=== PATIENT | male | born 1965 | race Caucasian/White ===

== ENCOUNTER 2016-07-24 08:38 | Outpatient (CLI) | payer OTHER ==
[2016-07-24 08:31] LABS: BILIRUBIN,URINE NEGATIVE (NEGATIVE); BLOOD, URINE NEGATIVE (NEGATIVE); COLOR,URINE YELLOW (YELLOW); GLUCOSE,URINE NEGATIVE (NEGATIVE); KETONES,URINE NEGATIVE (NEGATIVE); LEUKOCYTE ESTERASE ,URINE NEGATIVE (NEGATIVE); NITRITE, URINE NEGATIVE (NEGATIVE); PROTEIN URINE NEGATIVE (NEGATIVE); UROBILINOGEN,URINE 0.2 (0.2-1.0)
[2016-07-24 08:33] LABS: CLARITY/URINE CLEAR (CLEAR)
[~2016-07-24 08:38] MED LIST: LEVO137T18 PO; ROSU10TA
[2016-07-24 08:42] LABS: BASOPHILS % (AUTO) 0.7 % (0.0-2.0); EOSINOPHILS # (AUTO) 0.3 K/uL (0.0-0.4); HEMOGLOBIN 15.8 g/dL (14.0-18.0); LYMPHOCYTES # (AUTO) 1.7 K/uL (1.0-5.5); LYMPHOCYTES % (AUTO) 30.9 % (20.5-51.5); MEAN CORPUSCULAR HEMOGLOBIN 30 pg (27-31); MEAN CORPUSCULAR HGB CONC 32 % (32-36); MEAN CORPUSCULAR VOLUME 92 fL (79.0-98.0); MONOCYTES # (AUTO) 0.5 K/uL (0.0-1.0); MONOCYTES % (AUTO) 9.2 % (1.7-9.3); NEUTROPHILS # (AUTO) 2.9 K/uL (1.8-7.7); NEUTROPHILS % (AUTO) 53.2 % (40.0-70.0); RED BLOOD CELL COUNT(AUTO) 5.34 MIL/uL (4.2-6.2); RED CELL DISTRIBUTION WIDTH 13.3 % (9.0-15.0); WHITE BLOOD COUNT (AUTO) 5.4 K/uL (4.8-10.8)
[2016-07-24 09:01] LABS: CALCIUM 8.9 mg/dL (8.4-11.0); CREATININE 1.19 mg/dL (0.55-1.30); FREE T4 (FREE THYROXINE) 0.7 ng/dL (0.6-1.6); POTASSIUM 4.3 mmol/L (3.5-5.1); THYROID STIMULATING HORMONE 1.39 uIu/mL (0.34-4.82); TOTAL BILIRUBIN 1.3 mg/dL (0.0-1.0); TOTAL PROTEIN, SERUM 7.3 g/dL (6.4-8.3)
[2016-07-24 09:18] LABS: PLATELET COUNT (AUTO) 80 K/uL (130-430)
== END 2016-07-24 18:20 | disposition home or self-care (01) ==
LOC: SLB 08:38
PROVIDERS: ATTEND Family Medicine
DX: Z12.11 Encounter for screening for malignant neoplasm of colon (principal); Z83.3 Family history of diabetes mellitus
CPT/HCPCS: 36415; 80053; 80061; 81003; 82272; 83036; 84439; 84443-TC; 85025

== ENCOUNTER 2016-08-26 08:00 | Outpatient (CLI) | payer OTHER | END 2016-08-26 20:20 | disposition home or self-care (01) | LOC: SUS 08:00 | PROVIDERS: ATTEND Family Medicine | DX: E04.9 Nontoxic goiter, unspecified (principal) | CPT/HCPCS: 76536-TC ==

== ENCOUNTER 2016-09-08 08:09 | Emergency (ER) | payer OTHER ==
[~2016-09-08] VITALS: Ht 200.7 cm; Wt 121.1 kg
[2016-09-08 08:10] VITALS: BP_SYST 161
[2016-09-08] MEDS ORDERED: GLUCAGON,HUMAN RECOMBINANT 1 MG VIAL IVP ONE (08:30)
[2016-09-08] MEDS ORDERED: ONDANSETRON HCL 4 MG/2 ML VIAL IVP ONE (08:30)
[2016-09-08 08:41] LABS: BASOPHILS % (AUTO) 0.7 % (0.0-2.0); EOSINOPHILS # (AUTO) 0.2 K/uL (0.0-0.4); EOSINOPHILS % (AUTO) 3.6 % (0.0-4.0); HEMATOCRIT 48.3 % (36-54); HEMOGLOBIN 15.8 g/dL (14.0-18.0); LYMPHOCYTES # (AUTO) 1.8 K/uL (1.0-5.5); LYMPHOCYTES % (AUTO) 26.7 % (20.5-51.5); MEAN CORPUSCULAR HEMOGLOBIN 30 pg (27-31); MEAN CORPUSCULAR HGB CONC 33 % (32-36); MEAN CORPUSCULAR VOLUME 90 fL (79.0-98.0); MONOCYTES # (AUTO) 0.5 K/uL (0.0-1.0); MONOCYTES % (AUTO) 7.9 % (1.7-9.3); NEUTROPHILS # (AUTO) 4.1 K/uL (1.8-7.7); NEUTROPHILS % (AUTO) 61.1 % (40.0-70.0); RED BLOOD CELL COUNT(AUTO) 5.34 MIL/uL (4.2-6.2); RED CELL DISTRIBUTION WIDTH 12.7 % (9.0-15.0); WHITE BLOOD COUNT (AUTO) 6.6 K/uL (4.8-10.8)
[2016-09-08 08:43] LABS: CALCIUM 9.2 mg/dL (8.4-11.0); CREATININE 1.39 mg/dL (0.55-1.30); POTASSIUM 3.9 mmol/L (3.5-5.1)
[2016-09-08 08:48] LABS: ALBUMIN 4.4 g/dL (3.4-4.8); TOTAL BILIRUBIN 1.6 mg/dL (0.0-1.0)
[2016-09-08 09:27] LABS: PLATELET COUNT (AUTO) 93 K/uL (130-430)
[2016-09-08] MEDS ORDERED: BARIUM SULFATE 135 ML SUSP.RECON (E-Z-HD) PO ONE (10:06)
[2016-09-08 11:50] VITALS: BP_SYST 150
== END 2016-09-08 11:50 | disposition home or self-care (01) ==
LOC: SED 08:09
DX: T18.128A Food in esophagus causing other injury, initial encounter (principal); I10 Essential (primary) hypertension; E78.5 Hyperlipidemia, unspecified; Z88.0 Allergy status to penicillin; Z88.8 Allergy status to other drugs, medicaments and biological substances; X58.XXXA Exposure to other specified factors, initial encounter; Y93.89 Activity, other specified; Y92.89 Other specified places as the place of occurrence of the external cause; Y99.8 Other external cause status
CPT/HCPCS: 36415; 74220; 80053; 85025; 93005; 96374; 96375; 99285; J1610; J2405

== ENCOUNTER 2016-11-15 07:20 | Outpatient (CLI) | payer OTHER ==
[2016-11-15 08:02] LABS: ALBUMIN 4.2 g/dL (3.4-4.8); BILIRUBIN,DIRECT 0.2 mg/dL (0.0-0.3); THYROID STIMULATING HORMONE 1.52 uIu/mL (0.34-4.82); TOTAL BILIRUBIN 1.2 mg/dL (0.0-1.0)
[2016-11-15 08:37] LABS: FREE T4 (FREE THYROXINE) 0.9 ng/dL (0.6-1.6)
[2016-11-18 14:00] LABS: PROSTATE SPECIFIC AG 0.6 ng/mL (0.0-4.0)
== END 2016-11-15 20:08 | disposition home or self-care (01) ==
LOC: SLB 07:20
PROVIDERS: ATTEND Family Medicine
DX: K75.81 Nonalcoholic steatohepatitis (NASH) (principal); E78.2 Mixed hyperlipidemia; R93.8 Abnormal findings on diagnostic imaging of other specified body structures
CPT/HCPCS: 36415; 80061; 80076; 82306; 82977-TC; 84153; 84439; 84443-TC; 84479; 84480

== ENCOUNTER 2017-01-31 07:20 | Outpatient (CLI) | payer OTHER ==
[2017-01-31 08:31] LABS: ALBUMIN 4.3 g/dL (3.4-4.8); BILIRUBIN,DIRECT 0.3 mg/dL (0.0-0.3)
[2017-01-31 08:58] LABS: TOTAL BILIRUBIN 1.2 mg/dL (0.0-1.0)
== END 2017-01-31 17:24 | disposition home or self-care (01) ==
LOC: SLB 07:20
PROVIDERS: ATTEND Family Medicine
DX: E78.2 Mixed hyperlipidemia (principal); K75.81 Nonalcoholic steatohepatitis (NASH); R93.8 Abnormal findings on diagnostic imaging of other specified body structures
CPT/HCPCS: 36415; 80061; 80076; 82306

== ENCOUNTER 2017-04-04 07:01 | Outpatient (CLI) | payer OTHER ==
[~2017-04-04 07:01] MED LIST changes: -LEVO137T18 PO; +LEVO137T32 PO
[2017-04-04 07:56] LABS: ALBUMIN 4.4 g/dL (3.4-4.8); BILIRUBIN,DIRECT 0.3 mg/dL (0.0-0.3); FREE T4 (FREE THYROXINE) 0.7 ng/dL (0.6-1.6); THYROID STIMULATING HORMONE 3.35 uIu/mL (0.34-4.82); TOTAL BILIRUBIN 1.3 mg/dL (0.0-1.0)
== END 2017-04-04 19:50 | disposition home or self-care (01) ==
LOC: SLB 07:01
PROVIDERS: ATTEND Family Medicine
DX: E78.2 Mixed hyperlipidemia (principal); R93.8 Abnormal findings on diagnostic imaging of other specified body structures
CPT/HCPCS: 36415; 80061; 80076; 84439; 84443-TC; 84480; 84481

== ENCOUNTER 2017-08-18 19:09 | Inpatient (IN) | payer OTHER ==
[~2017-08-18] VITALS: Ht 200.7 cm; Wt 123.4 kg
[~2017-08-18 19:09] MED LIST changes: +LEVO137T18 PO; -LEVO137T32 PO
[2017-08-18 19:16] VITALS: BP_SYST 140
[2017-08-18] MEDS ORDERED: NACL 0.9% 1,000 ML IV ONE (20:28)
[2017-08-18] MEDS ORDERED: PANTOPRAZOLE SODIUM 40 MG/VIAL (PROTONIX) IVP ONE (20:30)
[2017-08-18] MEDS ORDERED: GLUCAGON,HUMAN RECOMBINANT 1 MG VIAL IVP ONE (20:30)
[2017-08-18] MEDS ORDERED: DIAZEPAM 10 MG/2 ML DISP.SYRIN IVP ONE (20:30)
[2017-08-18 20:42] LABS: BASOPHILS # (AUTO) 0.1 K/uL (0.0-0.2); EOSINOPHILS % (AUTO) 6.7 % (0.0-4.0); MEAN CORPUSCULAR HEMOGLOBIN 30 pg (27-31); MONOCYTES # (AUTO) 0.5 K/uL (0.0-1.0)
[2017-08-18 20:57] LABS: BASOPHILS % (AUTO) 1.5 % (0.0-2.0); CALCIUM 8.6 mg/dL (8.4-11.0); CREATININE 1.21 mg/dL (0.55-1.30); EOSINOPHILS # (AUTO) 0.4 K/uL (0.0-0.4); HEMATOCRIT 43.3 % (36-54); HEMOGLOBIN 14.4 g/dL (14.0-18.0); LYMPHOCYTES % (AUTO) 29.5 % (20.5-51.5); MEAN CORPUSCULAR HGB CONC 33 % (32-36); MEAN CORPUSCULAR VOLUME 92 fL (79.0-98.0); MONOCYTES % (AUTO) 6.8 % (1.7-9.3); NEUTROPHILS # (AUTO) 3.7 K/uL (1.8-7.7); NEUTROPHILS % (AUTO) 55.5 % (40.0-70.0); POTASSIUM 3.9 mmol/L (3.5-5.1); RED BLOOD CELL COUNT(AUTO) 4.73 MIL/uL (4.2-6.2); RED CELL DISTRIBUTION WIDTH 12.8 % (9.0-15.0); WHITE BLOOD COUNT (AUTO) 6.7 K/uL (4.8-10.8)
[2017-08-18 20:58] LABS: PLATELET COUNT (AUTO) 109 K/uL (130-430)
[2017-08-18 21:02] LABS: ALBUMIN 3.8 g/dL (3.4-4.8); TOTAL BILIRUBIN 0.9 mg/dL (0.0-1.0)
[2017-08-18] MEDS ORDERED: FAMO20TA8 PO (22:28)
[2017-08-18] MEDS ORDERED: LISI-209 PO (22:28)
[2017-08-18] MEDS ORDERED: D5/0.45 NS 1,000 ML IV SCH (23:00)
[2017-08-18 23:13] VITALS: BP_SYST 143
[2017-08-18] MEDS ORDERED: LORazepam 2 MG/ML VIAL IVP PRN (23:15)
[2017-08-18] MEDS ORDERED: MORPHINE 4 MG/ML INJ. SYRINGE IVP PRN ×2 (23:15)
[2017-08-18] MEDS ORDERED: ONDANSETRON HCL 4 MG/2 ML VIAL IVP PRN (23:15)
[2017-08-19 00:35] VITALS: BP_SYST 143
[2017-08-19 07:00] LABS: CALCIUM 8.4 mg/dL (8.4-11.0); CREATININE 1.1 mg/dL (0.55-1.30); POTASSIUM 3.7 mmol/L (3.5-5.1)
[2017-08-19 07:05] LABS: BASOPHILS # (AUTO) 0.1 K/uL (0.0-0.2); BASOPHILS % (AUTO) 1.4 % (0.0-2.0); EOSINOPHILS # (AUTO) 0.5 K/uL (0.0-0.4); EOSINOPHILS % (AUTO) 6.8 % (0.0-4.0); HEMATOCRIT 43.7 % (36-54); HEMOGLOBIN 14.3 g/dL (14.0-18.0); LYMPHOCYTES # (AUTO) 2.1 K/uL (1.0-5.5); MEAN CORPUSCULAR HEMOGLOBIN 30 pg (27-31); MEAN CORPUSCULAR HGB CONC 33 % (32-36); MEAN CORPUSCULAR VOLUME 92 fL (79.0-98.0); MONOCYTES # (AUTO) 0.6 K/uL (0.0-1.0); MONOCYTES % (AUTO) 8.1 % (1.7-9.3); NEUTROPHILS # (AUTO) 3.6 K/uL (1.8-7.7); NEUTROPHILS % (AUTO) 53.7 % (40.0-70.0); RED BLOOD CELL COUNT(AUTO) 4.76 MIL/uL (4.2-6.2); RED CELL DISTRIBUTION WIDTH 12.9 % (9.0-15.0); WHITE BLOOD COUNT (AUTO) 6.9 K/uL (4.8-10.8)
[2017-08-19 07:35] VITALS: BP_SYST 138
[2017-08-19] MEDS ORDERED: MIDAZOLAM HCL 5 MG/5 ML VIAL ONE (07:47)
[2017-08-19] MEDS ORDERED: SIMETHICONE 40 MG/0.6 ML ML ONE (07:48)
[2017-08-19] MEDS ORDERED: fentaNYL CITRATE/PF 100 MCG/2 ML AMP ONE (07:48)
[2017-08-19] MEDS: fentaNYL CITRATE/PF 100 MCG/2 ML AMP ONE ×3 (08:04→08:10)
[2017-08-19] MEDS: MIDAZOLAM HCL 5 MG/5 ML VIAL ONE ×4 (08:04→08:12)
[2017-08-19] MEDS ORDERED: PANTOPRAZOLE SODIUM 40 MG/VIAL (PROTONIX) IVP SCH ×2 (09:00)
[2017-08-19 09:52] LABS: PLATELET COUNT (AUTO) 108 K/uL (130-430)
[2017-08-19 12:00] VITALS: BP_SYST 132
[2017-08-19 16:37] VITALS: BP_SYST 132
[2017-08-19] MEDS ORDERED: PRO40 PO (18:35)
[2017-08-19 18:46] VITALS: BP_SYST 132
== END 2017-08-19 19:45 | disposition home or self-care (01) | DRG 395 ==
LOC: SED 19:09 → SMU 22:53
PROVIDERS: ADMIT Preventive Medicine Preventive Medicine/Occupational Environmental Medicine; ATTEND Preventive Medicine Preventive Medicine/Occupational Environmental Medicine
PROC: 0DB68ZX Excision of Stomach, Via Natural or Artificial Opening Endoscopic, Diagnostic (ICD-10-PCS; 2017-08-19)
PROC: 0DB58ZX Excision of Esophagus, Via Natural or Artificial Opening Endoscopic, Diagnostic (ICD-10-PCS; principal; 2017-08-19 08:00)
DX: T18.128A Food in esophagus causing other injury, initial encounter (principal); R13.10 Dysphagia, unspecified; K22.2 Esophageal obstruction; D64.9 Anemia, unspecified; E03.9 Hypothyroidism, unspecified; E78.00 Pure hypercholesterolemia, unspecified; E78.5 Hyperlipidemia, unspecified; F32.9 Major depressive disorder, single episode, unspecified; I10 Essential (primary) hypertension; K21.0 Gastro-esophageal reflux disease with esophagitis; K29.60 Other gastritis without bleeding; X58.XXXA Exposure to other specified factors, initial encounter; M10.9 Gout, unspecified; Z88.0 Allergy status to penicillin; Z88.8 Allergy status to other drugs, medicaments and biological substances; Z79.899 Other long term (current) drug therapy; Y93.89 Activity, other specified; Y92.89 Other specified places as the place of occurrence of the external cause; Y99.8 Other external cause status
CPT/HCPCS: 36415; 43239; 80048; 80053; 83690-TC; 85025; 88305; 88312; 88313; 96361; 96374; 96375; 99285; C1733; C9113; J1610; J2250; J3010; J3360; J7030

== ENCOUNTER 2017-12-04 07:34 | Outpatient (CLI) | payer OTHER ==
[~2017-12-04 07:34] MED LIST changes: -LEVO137T18 PO; +LEVO137T32 PO; +LISI-209 PO; +PRO40 PO
[2017-12-04 07:58] LABS: HEMATOCRIT 46.4 % (36-54); HEMOGLOBIN 15.1 g/dL (14.0-18.0); MEAN CORPUSCULAR HEMOGLOBIN 30 pg (27-31); MEAN CORPUSCULAR HGB CONC 33 % (32-36); MEAN CORPUSCULAR VOLUME 93 fL (79.0-98.0); PLATELET COUNT (AUTO) 111 K/uL (130-430); RED CELL DISTRIBUTION WIDTH 12.7 % (9.0-15.0); WHITE BLOOD COUNT (AUTO) 5.7 K/uL (4.8-10.8)
[2017-12-04 08:21] LABS: ALBUMIN 4.2 g/dL (3.4-4.8); CALCIUM 9.3 mg/dL (8.4-11.0); CREATININE 1.12 mg/dL (0.55-1.30); FREE T4 (FREE THYROXINE) 1.1 ng/dL (0.6-1.6); POTASSIUM 4.2 mmol/L (3.5-5.1); THYROID STIMULATING HORMONE 0.31 uIu/mL (0.34-4.82); TOTAL BILIRUBIN 1.5 mg/dL (0.0-1.0)
[2017-12-04 09:30] LABS: BASOPHILS % (MANUAL) 0 % (0-2); EOSINOPHILS % (MANUAL) 2 % (0-7); LYMPHOCYTES % (MANUAL) 24 % (20-46); MONOCYTES % (MANUAL) 6 % (0-11)
[2017-12-04 11:17] LABS: BILIRUBIN,URINE NEGATIVE (NEGATIVE); BLOOD, URINE NEGATIVE (NEGATIVE); CLARITY/URINE CLEAR (CLEAR); COLOR,URINE YELLOW (YELLOW); GLUCOSE,URINE NEGATIVE (NEGATIVE); KETONES,URINE NEGATIVE (NEGATIVE); LEUKOCYTE ESTERASE ,URINE NEGATIVE (NEGATIVE); NITRITE, URINE NEGATIVE (NEGATIVE); PROTEIN URINE NEGATIVE (NEGATIVE); UROBILINOGEN,URINE 0.2 (0.2-1.0)
== END 2017-12-04 20:18 | disposition home or self-care (01) ==
LOC: SLB 07:34
PROVIDERS: ATTEND Family Medicine
DX: Z00.01 Encounter for general adult medical examination with abnormal findings (principal); Z12.5 Encounter for screening for malignant neoplasm of prostate; Z12.11 Encounter for screening for malignant neoplasm of colon; I10 Essential (primary) hypertension; E03.9 Hypothyroidism, unspecified; Z87.891 Personal history of nicotine dependence
CPT/HCPCS: 36415; 80053; 80061; 81003; 82272; 84439; 84443; 85007; 85027; G0103

== ENCOUNTER 2017-12-12 06:04 | Day surgery (SDC) | payer OTHER ==
[~2017-12-12] VITALS: Ht 200.7 cm; Wt 116.6 kg
[2017-12-12] MEDS ORDERED: MIDAZOLAM HCL 5 MG/5 ML VIAL ONE ×2 (06:31→06:32)
[2017-12-12] MEDS ORDERED: fentaNYL CITRATE/PF 100 MCG/2 ML AMP ONE ×2 (06:32)
[2017-12-12] MEDS ORDERED: SIMETHICONE 40 MG/0.6 ML ML ONE (06:33)
[2017-12-12] MEDS ORDERED: MEPERIDINE HCL/PF 100 MG/ML AMP ONE ×2 (06:55→06:56)
[2017-12-12] MEDS ORDERED: MIDAZOLAM HCL 5 MG/5 ML VIAL IVP ONE ×4 (07:05→07:15)
[2017-12-12] MEDS ORDERED: MEPERIDINE HCL/PF 100 MG/ML AMP IV ONE ×3 (07:05→07:13)
[2017-12-12 10:48] VITALS: BP_SYST 140
== END 2017-12-12 09:23 | disposition home or self-care (01) ==
LOC: SDS 06:04 → SMU 09:22 → SDS 09:23
PROVIDERS: ATTEND Internal Medicine Gastroenterology
DX: Z12.11 Encounter for screening for malignant neoplasm of colon (principal); K62.1 Rectal polyp; K57.30 Diverticulosis of large intestine without perforation or abscess without bleeding; K64.8 Other hemorrhoids; K21.0 Gastro-esophageal reflux disease with esophagitis; K64.4 Residual hemorrhoidal skin tags; K29.50 Unspecified chronic gastritis without bleeding
CPT/HCPCS: 43239; 45380; 88305; 88312; 88313; J2175; J2250; J3010

== ENCOUNTER 2018-07-07 07:23 | Outpatient (CLI) | payer OTHER ==
[2018-07-07 08:00] LABS: BILIRUBIN,URINE NEGATIVE (NEGATIVE); BLOOD, URINE NEGATIVE (NEGATIVE); CLARITY/URINE CLEAR (CLEAR); COLOR,URINE YELLOW (YELLOW); GLUCOSE,URINE NEGATIVE (NEGATIVE); KETONES,URINE NEGATIVE (NEGATIVE); LEUKOCYTE ESTERASE ,URINE NEGATIVE (NEGATIVE); NITRITE, URINE NEGATIVE (NEGATIVE); PROTEIN URINE NEGATIVE (NEGATIVE); UROBILINOGEN,URINE 0.2 (0.2-1.0)
[2018-07-07 08:20] LABS: BASOPHILS % (AUTO) 0.8 % (0.0-2.0); EOSINOPHILS # (AUTO) 0.3 K/uL (0.0-0.4); EOSINOPHILS % (AUTO) 4.6 % (0.0-4.0); HEMATOCRIT 48.2 % (36-54); HEMOGLOBIN 15.6 g/dL (14.0-18.0); LYMPHOCYTES # (AUTO) 1.6 K/uL (1.0-5.5); LYMPHOCYTES % (AUTO) 28.1 % (20.5-51.5); MEAN CORPUSCULAR HEMOGLOBIN 31 pg (27-31); MEAN CORPUSCULAR HGB CONC 32 % (32-36); MEAN CORPUSCULAR VOLUME 96 fL (79.0-98.0); MONOCYTES # (AUTO) 0.5 K/uL (0.0-1.0); MONOCYTES % (AUTO) 8.6 % (1.7-9.3); NEUTROPHILS # (AUTO) 3.3 K/uL (1.8-7.7); NEUTROPHILS % (AUTO) 57.9 % (40.0-70.0); RED BLOOD CELL COUNT(AUTO) 5.02 MIL/uL (4.2-6.2); RED CELL DISTRIBUTION WIDTH 13.5 % (9.0-15.0); WHITE BLOOD COUNT (AUTO) 5.7 K/uL (4.8-10.8)
[2018-07-07 08:35] LABS: CALCIUM 9.3 mg/dL (8.4-11.0); CREATININE 1.3 mg/dL (0.55-1.30); FREE T4 (FREE THYROXINE) 0.6 ng/dL (0.6-1.6); POTASSIUM 4.1 mmol/L (3.5-5.1); THYROID STIMULATING HORMONE 8.86 uIu/mL (0.34-4.82); TOTAL BILIRUBIN 1.2 mg/dL (0.0-1.0)
[2018-07-07 09:49] LABS: PLATELET COUNT (AUTO) 103 K/uL (130-430)
[2018-07-08 05:19] LABS: TRIIODOTHYRONINE, FREE 2.8 pg/mL (2.0-4.4)
[2018-07-08 06:06] LABS: HEMOGLOBIN A1C 5.4 % (4.8-5.6)
[2018-07-08 18:17] LABS: PROSTATE SPECIFIC AG 0.8 ng/mL (0.0-4.0)
== END 2018-07-07 20:25 | disposition home or self-care (01) ==
LOC: SLB 07:23
PROVIDERS: ATTEND Family Medicine
DX: Z12.5 Encounter for screening for malignant neoplasm of prostate (principal); Z11.1 Encounter for screening for respiratory tuberculosis
CPT/HCPCS: 36415; 80053; 80061; 81003; 82272; 83036; 84153; 84439; 84443-TC; 84480; 84481; 85025

== ENCOUNTER 2018-12-11 08:51 | Outpatient (CLI) | payer OTHER ==
[2018-12-11 11:48] LABS: FREE T4 (FREE THYROXINE) 1.1 ng/dl (0.8-1.5); THYROID STIMULATING HORMONE 6.73 uIu/mL (0.36-3.74)
[2018-12-12 08:25] LABS: TRIIODOTHYRONINE, FREE 2.9 pg/mL (2.0-4.4)
== END 2018-12-11 20:34 | disposition home or self-care (01) ==
LOC: SLB 08:51
PROVIDERS: ATTEND Family Medicine
DX: E03.9 Hypothyroidism, unspecified (principal)
CPT/HCPCS: 36415; 84439; 84443-TC; 84480; 84481

== ENCOUNTER 2019-02-16 07:29 | Outpatient (CLI) | payer OTHER ==
[~2019-02-16 07:29] MED LIST changes: -ROSU10TA; +ROSU10TA2
[2019-02-16 10:49] LABS: THYROID STIMULATING HORMONE 1.57 uIu/mL (0.36-3.74)
[2019-02-17 08:15] LABS: TRIIODOTHYRONINE, FREE 2.8 pg/mL (2.0-4.4)
== END 2019-02-16 20:05 | disposition home or self-care (01) ==
LOC: SLB 07:29
PROVIDERS: ATTEND Family Medicine
DX: E03.9 Hypothyroidism, unspecified (principal)
CPT/HCPCS: 36415; 84439; 84443-TC; 84480; 84481

== ENCOUNTER 2019-06-04 07:15 | Outpatient (CLI) | payer OTHER ==
[2019-06-04 08:32] LABS: BILIRUBIN,URINE NEGATIVE (NEGATIVE); BLOOD, URINE NEGATIVE (NEGATIVE); CLARITY/URINE CLEAR (CLEAR); COLOR,URINE YELLOW (YELLOW); GLUCOSE,URINE NEGATIVE (NEGATIVE); KETONES,URINE NEGATIVE (NEGATIVE); LEUKOCYTE ESTERASE ,URINE NEGATIVE (NEGATIVE); NITRITE, URINE NEGATIVE (NEGATIVE); PROTEIN URINE NEGATIVE (NEGATIVE); UROBILINOGEN,URINE 0.2 (0.2-1.0)
[2019-06-04 08:43] LABS: BASOPHILS % (AUTO) 0.8 % (0.0-2.0); EOSINOPHILS # (AUTO) 0.3 K/uL (0.0-0.4); EOSINOPHILS % (AUTO) 5.4 % (0.0-4.0); HEMATOCRIT 46.4 % (36-54); LYMPHOCYTES # (AUTO) 1.3 K/uL (1.0-5.5); LYMPHOCYTES % (AUTO) 26.1 % (20.5-51.5); MEAN CORPUSCULAR HEMOGLOBIN 31 pg (27-31); MEAN CORPUSCULAR HGB CONC 32 % (32-36); MEAN CORPUSCULAR VOLUME 97 fL (79.0-98.0); MONOCYTES # (AUTO) 0.4 K/uL (0.0-1.0); PLATELET COUNT (AUTO) 101 K/uL (130-430); RED BLOOD CELL COUNT(AUTO) 4.81 MIL/uL (4.2-6.2); RED CELL DISTRIBUTION WIDTH 13.7 % (9.0-15.0)
[2019-06-04 08:52] LABS: ALBUMIN 3.7 g/dL (3.4-4.8); CALCIUM 8.8 mg/dL (8.4-11.0); CREATININE 1.36 mg/dL (0.55-1.30); FREE T4 (FREE THYROXINE) 0.9 ng/dl (0.8-1.5); POTASSIUM 4.3 mmol/L (3.5-5.1); THYROID STIMULATING HORMONE 6.91 uIu/mL (0.36-3.74)
[2019-06-04 09:41] LABS: NEUTROPHILS % (AUTO) 59.7 % (40.0-70.0)
== END 2019-06-04 20:01 | disposition home or self-care (01) ==
LOC: SLB 07:15
PROVIDERS: ATTEND Family Medicine
DX: Z12.5 Encounter for screening for malignant neoplasm of prostate (principal); Z12.11 Encounter for screening for malignant neoplasm of colon; Z00.00 Encounter for general adult medical examination without abnormal findings
CPT/HCPCS: 36415; 80053; 80061; 81003; 82272; 84153; 84439; 84443-TC; 85025

== ENCOUNTER 2020-02-02 07:15 | Outpatient (CLI) | payer OTHER ==
[2020-02-02 07:58] LABS: ALBUMIN 4.1 g/dL (3.4-4.8); BILIRUBIN,DIRECT 0.2 mg/dL (0.0-0.3); TOTAL BILIRUBIN 0.8 mg/dL (0.0-1.0)
== END 2020-02-02 19:56 | disposition home or self-care (01) ==
LOC: SLB 07:15
PROVIDERS: ATTEND Family Medicine
DX: E78.2 Mixed hyperlipidemia (principal)
CPT/HCPCS: 36415; 80061; 80076

== ENCOUNTER 2020-02-07 10:33 | Outpatient (CLI) | payer OTHER, SELFPAY ==
--- NOTE | 2020-02-09 09:52 | NUR ---
Patient was called by [facility] to notify his COVID-19 "Positive" PCR result. Patient was instructed to follow home isolation instructions and preventive measures (universal source control). Patient verbalizes understanding.
== END 2020-02-07 20:26 | disposition home or self-care (01) ==
LOC: SLB 10:33
PROVIDERS: ATTEND Family Medicine
DX: U07.1 COVID-19 (principal); R05 Cough; R53.83 Other fatigue
CPT/HCPCS: C9803; U0003

== ENCOUNTER 2020-02-18 10:48 | Outpatient (CLI) | payer OTHER, SELFPAY | END 2020-02-18 20:52 | disposition home or self-care (01) | LOC: SLB 10:48 | PROVIDERS: ATTEND Family Medicine | DX: Z20.828 Contact with and (suspected) exposure to other viral communicable diseases (principal); Z86.19 Personal history of other infectious and parasitic diseases | CPT/HCPCS: 36415 ==

== ENCOUNTER 2020-11-07 07:08 | Outpatient (CLI) | payer OTHER ==
[2020-11-07 08:11] LABS: BILIRUBIN,URINE NEGATIVE (NEGATIVE); BLOOD, URINE NEGATIVE (NEGATIVE); CLARITY/URINE CLEAR (CLEAR); COLOR,URINE YELLOW (YELLOW); GLUCOSE,URINE NEGATIVE (NEGATIVE); KETONES,URINE NEGATIVE (NEGATIVE); LEUKOCYTE ESTERASE ,URINE NEGATIVE (NEGATIVE); NITRITE, URINE NEGATIVE (NEGATIVE); PH,URINE 5.5 (5.0-8.0); PROTEIN URINE NEGATIVE (NEGATIVE); UROBILINOGEN,URINE 0.2 (0.2-1.0)
[2020-11-07 08:12] LABS: BASOPHILS % (AUTO) 0.8 % (0.0-2.0); EOSINOPHILS # (AUTO) 0.4 K/uL (0.0-0.4); EOSINOPHILS % (AUTO) 8.8 % (0.0-4.0); HEMATOCRIT 45.1 % (36-54); HEMOGLOBIN 14.9 g/dL (14.0-18.0); LYMPHOCYTES # (AUTO) 1.6 K/uL (1.0-5.5); LYMPHOCYTES % (AUTO) 30.7 % (20.5-51.5); MEAN CORPUSCULAR HEMOGLOBIN 31 pg (27-31); MEAN CORPUSCULAR HGB CONC 33 % (32-36); MEAN CORPUSCULAR VOLUME 95 fL (79.0-98.0); MONOCYTES # (AUTO) 0.5 K/uL (0.0-1.0); MONOCYTES % (AUTO) 9.8 % (1.7-9.3); NEUTROPHILS # (AUTO) 2.5 K/uL (1.8-7.7); NEUTROPHILS % (AUTO) 49.9 % (40.0-70.0); PLATELET COUNT (AUTO) 100 K/uL (130-430); RED BLOOD CELL COUNT(AUTO) 4.76 MIL/uL (4.2-6.2); RED CELL DISTRIBUTION WIDTH 13.8 % (9.0-15.0); WHITE BLOOD COUNT (AUTO) 5.1 K/uL (4.8-10.8)
[2020-11-07 09:04] LABS: ALBUMIN 3.6 g/dL (3.4-4.8); CALCIUM 8.8 mg/dL (8.4-11.0); CREATININE 1.13 mg/dL (0.55-1.30); FREE T4 (FREE THYROXINE) 0.8 ng/dL (0.6-1.6); POTASSIUM 4.3 mmol/L (3.5-5.1); THYROID STIMULATING HORMONE 2.18 uIu/mL (0.34-4.82)
== END 2020-11-07 21:19 | disposition home or self-care (01) ==
LOC: SLB 07:08
PROVIDERS: ATTEND Family Medicine
DX: Z00.00 Encounter for general adult medical examination without abnormal findings (principal); Z12.5 Encounter for screening for malignant neoplasm of prostate; Z12.11 Encounter for screening for malignant neoplasm of colon; Z83.3 Family history of diabetes mellitus
CPT/HCPCS: 36415; 80053; 80061; 81003; 82272; 83036; 84439; 84443; 85025

== ENCOUNTER 2020-11-16 07:28 | Outpatient (CLI) | payer OTHER | END 2020-11-16 19:32 | disposition home or self-care (01) | LOC: SUS 07:28 | PROVIDERS: ATTEND Family Medicine | DX: N18.1 Chronic kidney disease, stage 1 (principal) | CPT/HCPCS: 76770 ==

== ENCOUNTER 2021-03-20 07:00 | Outpatient (CLI) | payer OTHER ==
[2021-03-20 08:28] LABS: ALBUMIN 3.8 g/dL (3.4-4.8); CALCIUM 8.5 mg/dL (8.4-11.0); CREATININE 1.1 mg/dL (0.55-1.30); TOTAL BILIRUBIN 0.9 mg/dL (0.0-1.0)
== END 2021-03-20 16:00 | disposition home or self-care (01) ==
LOC: SLB 07:00
PROVIDERS: ATTEND Family Medicine
DX: E78.00 Pure hypercholesterolemia, unspecified (principal)
CPT/HCPCS: 36415; 80053; 80061

== ENCOUNTER 2021-07-10 12:50 | Outpatient (CLI) | payer OTHER ==
[2021-07-10 08:33] LABS: ALBUMIN 3.7 g/dL (3.4-4.8); CALCIUM 8.8 mg/dL (8.4-11.0); CREATININE 1.27 mg/dL (0.55-1.30); POTASSIUM 4.2 mmol/L (3.5-5.1); TOTAL BILIRUBIN 0.9 mg/dL (0.0-1.0)
== END 2021-07-10 20:26 | disposition home or self-care (01) ==
LOC: SLB 12:50
PROVIDERS: ATTEND Family Medicine
DX: N18.1 Chronic kidney disease, stage 1 (principal)
CPT/HCPCS: 36415; 80053

== ENCOUNTER 2022-01-02 07:10 | Outpatient (CLI) | payer OTHER ==
[2022-01-02 07:37] LABS: BASOPHILS # (AUTO) 0.1 K/uL (0.0-0.2); EOSINOPHILS # (AUTO) 0.5 K/uL (0.0-0.4); HEMOGLOBIN 15.2 g/dL (14.0-18.0); LYMPHOCYTES # (AUTO) 1.7 K/uL (1.0-5.5); MEAN CORPUSCULAR HEMOGLOBIN 31 pg (27-31); RED BLOOD CELL COUNT(AUTO) 4.89 MIL/uL (4.2-6.2); WHITE BLOOD COUNT (AUTO) 5.3 K/uL (4.8-10.8)
[2022-01-02 07:56] LABS: EOSINOPHILS % (AUTO) 8.6 % (0.0-4.0); HEMATOCRIT 45.2 % (36-54); LYMPHOCYTES % (AUTO) 32.7 % (20.5-51.5); MEAN CORPUSCULAR HGB CONC 34 % (32-36); MEAN CORPUSCULAR VOLUME 92 fL (79.0-98.0); MONOCYTES # (AUTO) 0.4 K/uL (0.0-1.0); MONOCYTES % (AUTO) 8.3 % (1.7-9.3); NEUTROPHILS # (AUTO) 2.6 K/uL (1.8-7.7); NEUTROPHILS % (AUTO) 49.4 % (40.0-70.0); PLATELET COUNT (AUTO) 94 K/uL (130-430); RED CELL DISTRIBUTION WIDTH 13.7 % (9.0-15.0)
[2022-01-02 08:07] LABS: BILIRUBIN,URINE NEGATIVE (NEGATIVE); BLOOD, URINE NEGATIVE (NEGATIVE); CLARITY/URINE CLEAR (CLEAR); COLOR,URINE YELLOW (YELLOW); GLUCOSE,URINE NEGATIVE (NEGATIVE); KETONES,URINE NEGATIVE (NEGATIVE); LEUKOCYTE ESTERASE ,URINE NEGATIVE (NEGATIVE); NITRITE, URINE NEGATIVE (NEGATIVE); PROTEIN URINE NEGATIVE (NEGATIVE); UROBILINOGEN,URINE 0.2 (0.2-1.0)
[2022-01-02 09:07] LABS: ALBUMIN 3.8 g/dL (3.4-4.8); CALCIUM 8.8 mg/dL (8.4-11.0); CREATININE 1.46 mg/dL (0.55-1.30); POTASSIUM 3.9 mmol/L (3.5-5.1); THYROID STIMULATING HORMONE 6.95 uIu/mL (0.36-3.74); TOTAL BILIRUBIN 1.4 mg/dL (0.0-1.0)
[2022-01-03 08:06] LABS: PROSTATE SPECIFIC AG 0.7 ng/mL (0.0-4.0); T4 (THYROXINE) 7.1 ug/dL (4.5-12.0)
== END 2022-01-02 19:42 | disposition home or self-care (01) ==
LOC: SLB 07:10
PROVIDERS: ATTEND Family Medicine
DX: Z00.00 Encounter for general adult medical examination without abnormal findings (principal); Z12.5 Encounter for screening for malignant neoplasm of prostate; Z12.11 Encounter for screening for malignant neoplasm of colon
CPT/HCPCS: 36415; 80053; 80061; 81003; 83036; 84153; 84436; 84443; 85025

== ENCOUNTER 2022-01-16 07:06 | Outpatient (CLI) | payer OTHER | END 2022-01-16 19:23 | disposition home or self-care (01) | LOC: SRD 07:06 | PROVIDERS: ATTEND Family Medicine | DX: N18.1 Chronic kidney disease, stage 1 (principal); K75.81 Nonalcoholic steatohepatitis (NASH) | CPT/HCPCS: 76700-TC ==

== ENCOUNTER 2022-08-23 07:06 | Outpatient (CLI) | payer OTHER ==
[2022-08-23 08:01] LABS: BILIRUBIN,DIRECT 0.2 mg/dL (0.0-0.3); TOTAL BILIRUBIN 1.1 mg/dL (0.0-1.0)
== END 2022-08-23 20:35 | disposition home or self-care (01) ==
LOC: SLB 07:06
PROVIDERS: ATTEND Family Medicine
DX: E78.2 Mixed hyperlipidemia (principal)
CPT/HCPCS: 36415; 80061; 80076

== ENCOUNTER 2022-11-01 07:03 | Outpatient (CLI) | payer OTHER ==
[2022-11-01 08:01] LABS: ALBUMIN 3.6 g/dL (3.4-4.8); BILIRUBIN,DIRECT 0.2 mg/dL (0.0-0.3); THYROID STIMULATING HORMONE 10.84 uIu/mL (0.34-4.82); TOTAL BILIRUBIN 1.1 mg/dL (0.0-1.0)
== END 2022-11-01 18:07 | disposition home or self-care (01) ==
LOC: SLB 07:03
PROVIDERS: ATTEND Family Medicine
DX: E78.2 Mixed hyperlipidemia (principal)
CPT/HCPCS: 36415; 80061; 80076; 84436; 84443

== ENCOUNTER 2023-04-18 07:09 | Outpatient (CLI) | payer OTHER ==
[2023-04-18 07:25] LABS: BASOPHILS # (AUTO) 0.1 K/uL (0.0-0.2); EOSINOPHILS # (AUTO) 0.5 K/uL (0.0-0.4); EOSINOPHILS % (AUTO) 9.3 % (0.0-4.0); HEMATOCRIT 44.7 % (36-54); HEMOGLOBIN 14.9 g/dL (14.0-18.0); LYMPHOCYTES # (AUTO) 1.5 K/uL (1.0-5.5); LYMPHOCYTES % (AUTO) 25.4 % (20.5-51.5); MEAN CORPUSCULAR HEMOGLOBIN 31 pg (27-31); MEAN CORPUSCULAR HGB CONC 33 % (32-36); MEAN CORPUSCULAR VOLUME 94 fL (79.0-98.0); MONOCYTES # (AUTO) 0.5 K/uL (0.0-1.0); MONOCYTES % (AUTO) 7.8 % (1.7-9.3); NEUTROPHILS # (AUTO) 3.3 K/uL (1.8-7.7); NEUTROPHILS % (AUTO) 56.5 % (40.0-70.0); PLATELET COUNT (AUTO) 112 K/uL (130-430); RED BLOOD CELL COUNT(AUTO) 4.73 MIL/uL (4.2-6.2); RED CELL DISTRIBUTION WIDTH 13.6 % (9.0-15.0); WHITE BLOOD COUNT (AUTO) 5.8 K/uL (4.8-10.8)
[2023-04-18 07:46] LABS: BILIRUBIN,URINE NEGATIVE (NEGATIVE); BLOOD, URINE NEGATIVE (NEGATIVE); CLARITY/URINE CLEAR (CLEAR); COLOR,URINE YELLOW (YELLOW); GLUCOSE,URINE NEGATIVE (NEGATIVE); KETONES,URINE NEGATIVE (NEGATIVE); LEUKOCYTE ESTERASE ,URINE NEGATIVE (NEGATIVE); NITRITE, URINE NEGATIVE (NEGATIVE); PH,URINE 6.5 (5.0-8.0); PROTEIN URINE NEGATIVE (NEGATIVE); UROBILINOGEN,URINE 0.2 (0.2-1.0)
[2023-04-18 08:04] LABS: ALBUMIN 3.8 g/dL (3.4-4.8); CALCIUM 8.9 mg/dL (8.4-11.0); CREATININE 1.23 mg/dL (0.55-1.30); FREE T4 (FREE THYROXINE) 0.8 ng/dL (0.6-1.6); POTASSIUM 4.2 mmol/L (3.5-5.1); THYROID STIMULATING HORMONE 7.72 uIu/mL (0.34-4.82); TOTAL BILIRUBIN 1.1 mg/dL (0.0-1.0); TOTAL PROTEIN, SERUM 7.4 g/dL (6.4-8.3)
== END 2023-04-18 18:00 | disposition home or self-care (01) ==
LOC: SLB 07:09
PROVIDERS: ATTEND Family Medicine
DX: Z00.00 Encounter for general adult medical examination without abnormal findings (principal); Z12.5 Encounter for screening for malignant neoplasm of prostate; Z12.11 Encounter for screening for malignant neoplasm of colon
CPT/HCPCS: 36415; 80053; 80061; 81001; 81003; 82272; 84153; 84439; 84443; 85025

== ENCOUNTER 2023-04-29 10:11 | Emergency (ER) | payer OTHER ==
[~2023-04-29] VITALS: Ht 198.1 cm; Wt 121.1 kg
[2023-04-29 10:22] VITALS: BP_SYST 165; PULSE 85; RESP 17; TEMP 97.2; O2SAT 99
[2023-04-29 10:33] LABS: BASOPHILS # (AUTO) 0.1 K/uL (0.0-0.2); EOSINOPHILS # (AUTO) 0.3 K/uL (0.0-0.4); EOSINOPHILS % (AUTO) 5.9 % (0.0-4.0); HEMATOCRIT 45.7 % (36-54); HEMOGLOBIN 15.3 g/dL (14.0-18.0); LYMPHOCYTES # (AUTO) 1.8 K/uL (1.0-5.5); LYMPHOCYTES % (AUTO) 30.2 % (20.5-51.5); MEAN CORPUSCULAR HEMOGLOBIN 32 pg (27-31); MEAN CORPUSCULAR HGB CONC 34 % (32-36); MEAN CORPUSCULAR VOLUME 94 fL (79.0-98.0); MONOCYTES # (AUTO) 0.6 K/uL (0.0-1.0); MONOCYTES % (AUTO) 10.8 % (1.7-9.3); NEUTROPHILS # (AUTO) 3.1 K/uL (1.8-7.7); NEUTROPHILS % (AUTO) 52.1 % (40.0-70.0); PLATELET COUNT (AUTO) 108 K/uL (130-430); RED BLOOD CELL COUNT(AUTO) 4.85 MIL/uL (4.2-6.2); RED CELL DISTRIBUTION WIDTH 13.5 % (9.0-15.0)
[2023-04-29 10:45] LABS: ANION GAP 8 (5-15); CALCIUM 9.3 mg/dL (8.4-11.0); CARBON DIOXIDE 29 mmol/L (23-29); CHLORIDE 103 mmol/L (98-107); CREATININE 1.18 mg/dL (0.55-1.30); GFR AFRICAN AMERICAN 82 mL/min (>90); GLUCOSE 100 mg/dL (74-106); POTASSIUM 4.5 mmol/L (3.5-5.1); SODIUM SERUM 140 mmol/L (136-145); UREA NITROGEN, BLOOD 13 mg/dL (8-21)
[2023-04-29 10:47] LABS: GFR NON AFRICAN-AMERICAN 68 mL/min (>90)
[2023-04-29] MEDS: ASPIRIN 81 MG TAB.CHEW PO ONE (10:55)
[2023-04-29 10:59] LABS: THYROID STIMULATING HORMONE 6.78 uIu/mL (0.34-4.82)
[2023-04-29 13:51] VITALS: BP_SYST 157; PULSE 69; RESP 20; TEMP 97.8; O2SAT 98
== END 2023-04-29 13:50 | disposition home or self-care (01) ==
LOC: SED 10:11
DX: R07.9 Chest pain, unspecified (principal); I10 Essential (primary) hypertension; E78.5 Hyperlipidemia, unspecified; E03.9 Hypothyroidism, unspecified; Z88.0 Allergy status to penicillin; Z88.8 Allergy status to other drugs, medicaments and biological substances; Z79.899 Other long term (current) drug therapy
CPT/HCPCS: 36415; 71045; 80048; 84439; 84443; 84484; 85025; 85379; 93005; 99285

== ENCOUNTER 2023-05-23 08:39 | Outpatient (CLI) | payer OTHER | END 2023-05-23 20:25 | disposition home or self-care (01) | LOC: SUS 08:39 | PROVIDERS: ATTEND Family Medicine | DX: N28.1 Cyst of kidney, acquired (principal); N25.9 Disorder resulting from impaired renal tubular function, unspecified | CPT/HCPCS: 76770 ==

== ENCOUNTER 2023-06-10 07:17 | Outpatient (CLI) | payer OTHER ==
[2023-06-10 08:19] LABS: THYROID STIMULATING HORMONE 1.85 uIu/mL (0.34-4.82)
[2023-06-11 08:06] LABS: T4 (THYROXINE) 6.6 ug/dL (4.5-12.0)
== END 2023-06-10 21:08 | disposition home or self-care (01) ==
LOC: SLB 07:17
PROVIDERS: ATTEND Family Medicine
DX: E03.9 Hypothyroidism, unspecified (principal)
CPT/HCPCS: 36415; 84436; 84439; 84443; 84480

== ENCOUNTER 2023-12-16 11:43 | Outpatient (CLI) | payer OTHER | END 2023-12-16 18:37 | disposition home or self-care (01) | LOC: SCT 11:43 | PROVIDERS: ATTEND Family Medicine | DX: M43.12 Spondylolisthesis, cervical region (principal); M47.812 Spondylosis without myelopathy or radiculopathy, cervical region; M50.30 Other cervical disc degeneration, unspecified cervical region; M25.78 Osteophyte, vertebrae | CPT/HCPCS: 72125-TC ==